=== PATIENT | male | born 1995 | race Two or more races ===

== ENCOUNTER 2020-06-28 18:17 | Emergency (ER) | payer SELFPAY ==
[~2020-06-28] VITALS: Ht 182.9 cm; Wt 79.4 kg
--- NOTE | 2020-06-28 18:24 | Emergency Room Report ---
History of Present Illness General Chief Complaint: Multiple Trauma/Fall Source: Patient Present Illness [facility] Disclaimer: Please note that this report is being documented using DRAGON technology. This can lead to erroneous entry secondary to incorrect interpretation by the dictating instrument. HPI: 24-year-old male presents for evaluation after a fall with a head injury. The patient states he was running from someone identified people when he felt lightheaded and fell. He states this happened in view of an ambulance and immediately rushed over. He remembers the events and does not believe he fully syncopized. Patient fell hitting the back of his head and sustained a laceration. EMS dressed the wound and brought in for evaluation. He states he has not had anything to eat or drink as he has had no money over the past 2 days. Denies alcohol or drug use. Currently denies any lightheadedness, headache, shortness of breath, chest pain, palpitations, nausea, vomiting. Cannot recall last tetanus shot. PMH: Denied PSH: Denied Allergies: Denied Social Hx: Denied Allergies: Coded Allergies: No Known Allergies (Unverified , 06/28/20) COVID-19 Screening Contact w/high risk pt: No Experienced COVID-19 symptoms?: No COVID-19 Testing performed NETWORK PROJECT MANAGER: No Nursing Documentation-PMH Past Medical History: No Stated History Hx Cardiac Problems: No Hx Hypertension: No Hx Pacemaker: No Hx Asthma: No Hx COPD: No Hx Diabetes: No Hx Cancer: No Hx Gastrointestinal Problems: No Hx Dialysis: No History Of Psychiatric Problem: No Hx Neurological Problems: No Hx Cerebrovascular Accident: No Hx Seizures: No Review of Systems All Other Systems: negative except mentioned in HPI Physical Exam Vital Signs Date Time Temp Pulse Resp B/P (MAP) Pulse Ox O2 Delivery O2 Flow Rate FiO2 06/28/20 18:09 98.1 120 18 160/98 (118) 98 Room Air General: Awake and alert, appears agitated HEENT: Normocephalic, stellate laceration over the occiput approximately 5 cm a cross. There are no face hematomas, lacerations or abrasions. No tenderness or soft tissue swelling over the facial bones. EOMI. PERRLA. Pupils approximately 4 mm. No septal hematoma. No oral lacerations. Dentition is intact. No malocclusion Neck: Supple, trachea midline. Arrives without cervical collar Chest Wall: No tenderness, no deformity, no crepitus CV: RRR. S1 and S2 normal. No murmur appreciated Resp: Normal work of breathing. No cough, wheezing or crackles appreciated Abd: Soft, nontender, nondistended Skin: Intact. No abrasions, laceration or rash over the exposed skin MSK: Normal tone and bulk. No obvious deformity. Moving all extremities. Ambulating without difficulty. Neuro: Awake and alert. Mentating appropriately. Mildly agitated but redirectable. GCS 15. Moving all extremities. Spine: There is no tenderness, step-off or deformity in the cervical, thoracic or lumbosacral spine. Procedures Critical Care Time Critical Care Time Total critical care time: Approximately 45 minutes Due to a high probability of clinically significant, life threatening deteriorat ion, the patient required the highest level of preparedness to intervene emergently and I personally spent this critical care time directly and personally managing the patient. This critical care time included obtaining a history, examining the patient, pulse oximetry, ordering and reviewing studies, ordering treatments, evaluating response to treatment and updating management plan as needed, frequent reassessment and discussion with other providers as well as arranging for ultimate disposition. This critical to care time was performed to assess and manage the high probability of life-threatening deterioration that could result in multiorgan failure. This critical care time is separate from the separately billable procedures and treating other patients. Medical Decision Making Diagnostic Impression: Primary Impression: Acute intracranial hemorrhage Additional Impressions: Head trauma Scalp laceration Syncope Hypokalemia Amphetamine abuse ER Course 24-year-old male had a fall from standing after near syncopal episode. Diffe rential includes was not limited to dehydration, electrolyte abnormality, malnutrition, heat exhaustion, acute cardiac event, tox, intracranial injury, intercranial mass. CT and labs ordered. Tetanus will be updated. Started on IV fluids. Patient is neurologically intact, GCS 15, no focal deficits awake and alert and conversant. 1850: Alerted by radiology that the patient has an acute cranial hemorrhage along the posterior fossa with probable subtle subarachnoid hemorrhages in the supratentorial regions. He remains awake alert conversive neurologically intact with GCS of 15. Latest blood pressure 135/76. Head of the bed elevated. Patient loaded with Keppra. Labs are pending. Patient likely require MRI and therefore we will not place issa in the scalp but will put a sterile bandage over. Will arrange transfer to [facility]. Dr. Mcdonald is the accepting physician in the neuro ICU. Patient is stable for transfer. 2000: Labs show mild hypokalemia and positive for amphetamines, marijuana, benzodia zepines. Other labs have returned within normal limits. Patient remained stable for transfer. Arrange for rapid transfer to [facility]. Labs Test 06/28/20 18:49 White Blood Count 13.6 K/UL (4.8-10.8) Red Blood Count 5.36 M/UL (4.70-6.10) Hemoglobin 15.7 G/DL (14.2-18.0) Hematocrit 46.5 % (42.0-52.0) Mean Corpuscular Volume 87 FL (80-99) Mean Corpuscular Hemoglobin 29.3 PG (27.0-31.0) Mean Corpuscular Hemoglobin Concent 33.7 G/DL (32.0-36.0) Red Cell Distribution Width 12.2 % (11.6-14.8) Platelet Count 315 K/UL (150-450) Mean Platelet Volume 8.4 FL (6.5-10.1) Neutrophils (%) (Auto) 80.0 % (45.0-75.0) Lymphocytes (%) (Auto) 10.9 % (20.0-45.0) Monocytes (%) (Auto) 7.9 % (1.0-10.0) Eosinophils (%) (Auto) 0.3 % (0.0-3.0) Basophils (%) (Auto) 0.9 % (0.0-2.0) Prothrombin Time 12.5 SEC (9.30-11.50) Prothromb Time International Ratio 1.1 (0.9-1.1) Activated Partial Thromboplast Time 26 SEC (23-33) Sodium Level 137 MMOL/L (136-145) Potassium Level 3.0 MMOL/L (3.5-5.1) Chloride Level 96 MMOL/L (98-107) Carbon Dioxide Level 25 MMOL/L (21-32) Anion Gap 16 mmol/L (5-15) Blood Urea Nitrogen 22 mg/dL (7-18) Creatinine 1.3 MG/DL (0.55-1.30) Estimat Glomerular Filtration Rate > 60 mL/min (>60) Glucose Level 127 MG/DL (74-106) Calcium Level 9.3 MG/DL (8.5-10.1) Troponin I 0.000 ng/mL (0.000-0.056) Urine Opiates Screen Negative (NEGATIVE) Urine Barbiturates Screen Negative (NEGATIVE) Phencyclidine (PCP) Screen Negative (NEGATIVE) Urine Amphetamines Screen Positive (NEGATIVE) Urine Benzodiazepines Screen Positive (NEGATIVE) Urine Cocaine Screen Negative (NEGATIVE) Urine Marijuana (THC) Screen Positive (NEGATIVE) Serum Alcohol < 3 mg/dL EKG Diagnostic Results EKG Time: 18:46 Rate: tachycardiac Rhythm: NSR ST Segments: no acute changes Other Impression Sinus tachycardia, normal axis, prolonged QTC at 560 ms, TN interval within normal limits as is QRS duration. No acute ST segment changes. ASA given to the pt in ED: No Rhythm Strip Diag. Results Rhythm Strip Time: 18:46 EP Interpretation: yes Rhythm: no PVC's, no ectopy CT/MRI/US Diagnostic Results CT/MRI/US Diagnostic Results : Impression Final Report EXAM: CT Head Without Intravenous Contrast CLINICAL HISTORY: INJ TECHNIQUE: Axial computed tomography images of the head/brain without intravenous contrast. CTDI is 53.4 mGy and DLP is 1004.7 mGy-cm. One or more of the following dose reduction techniques were used: automated exposure control, adjustment of the mA and/or kV according to patient size, use of iterative reconstruction technique. COMPARISON: No previous study. FINDINGS: Brain: There is an area of acute hemorrhage measuring 2.1 x 0.5 cm along the falx posteriorly best seen on series 6 image 20. Scattered subtle areas of subarachnoid hemorrhage are noted such as are left temporoparietal region best seen on series 6 image 22. Probable very minimal hemorrhage along the tentorium best seen on coronal image 25. No significant white matter disease. Ventricles: The ventricular system is age appropriate. Bones/joints: Calvarium is unremarkable. No acute fracture. Soft tissues: Scalp injury at the vertex. Sinuses: 0.8 cm polyp versus mucous retention cyst left sphenoid sinus. Mild to moderate chronic ethmoid sinusitis. Mastoid air cells: Mastoid air cells are well pneumatized. IMPRESSION: 1. Acute intracranial hemorrhage most notably along the posterior fossa best seen on series 6 image 20. 2. Scalp injury at the vertex. 3. No significant midline shift or mass-effect to 4. Subtle areas of subarachnoid hemorrhage are noted, most likely on the basis of bruising of the brain parenchyma. 5. Probable subtle minimal areas of subarachnoid hemorrhage in the supratentorial regions. Radiologist: Richard Redmond MD Electronically Signed: 06/28/20 18:45 Study ready at 18:41 and initial results transmitted at 18:45 Communications: Clear Time Type Notes Call Doctor Intracranial Hemorrhage Last Vital Signs Date Time Temp Pulse Resp B/P (MAP) Pulse Ox O2 Delivery O2 Flow Rate FiO2 06/28/20 18:09 98.1 120 18 160/98 (118) 98 Room Air Disposition: SHORT-TERM HOSP Condition: Serious Govind Medley MD Jun 28, 2020 18:24
[2020-06-28] MEDS ORDERED: Tetanus/Diptheria/Pertussis IM ONE (18:30)
[2020-06-28 18:32] VITALS: BP 160/98
--- NOTE | 2020-06-28 18:45 | Diagnostic Imaging Report ---
EXAM: CT Head Without Intravenous Contrast CLINICAL HISTORY: INJ TECHNIQUE: Axial computed tomography images of the head/brain without intravenous contrast. CTDI is 53.4 mGy and DLP is 1004.7 mGy-cm. One or more of the following dose reduction techniques were used: automated exposure control, adjustment of the mA and/or kV according to patient size, use of iterative reconstruction technique. COMPARISON: No previous study. FINDINGS: Brain: There is an area of acute hemorrhage measuring 2.1 x 0.5 cm along the falx posteriorly best seen on series 6 image 20. Scattered subtle areas of subarachnoid hemorrhage are noted such as are left temporoparietal region best seen on series 6 image 22. Probable very minimal hemorrhage along the tentorium best seen on coronal image 25. No significant white matter disease. Ventricles: The ventricular system is age appropriate. Bones/joints: Calvarium is unremarkable. No acute fracture. Soft tissues: Scalp injury at the vertex. Sinuses: 0.8 cm polyp versus mucous retention cyst left sphenoid sinus. Mild to moderate chronic ethmoid sinusitis. Mastoid air cells: Mastoid air cells are well pneumatized. IMPRESSION: 1. Acute intracranial hemorrhage most notably along the posterior fossa best seen on series 6 image 20. 2. Scalp injury at the vertex. 3. No significant midline shift or mass-effect to 4. Subtle areas of subarachnoid hemorrhage are noted, most likely on the basis of bruising of the brain parenchyma. 5. Probable subtle minimal areas of subarachnoid hemorrhage in the supratentorial regions. <MYCVCSECTION> Communications: 06/28/20 18:54 Call Doctor Regarding Intracranial Hemorrhage, called Dr Willoughby on 06/28 18:53 (-07:00)
[2020-06-28 19:00] VITALS: BP 135/76
[2020-06-28 19:09] LABS: BASOPHILS % (AUTO) 0.9 % (0.0-2.0); EOSINOPHILS % (AUTO) 0.3 % (0.0-3.0); HEMATOCRIT 46.5 % (42.0-52.0); HEMOGLOBIN 15.7 G/DL (14.2-18.0); LYMPHOCYTES % (AUTO) 10.9 % (20.0-45.0); MEAN CORPUSCULAR VOLUME 87 FL (80-99); MONOCYTES % (AUTO) 7.9 % (1.0-10.0); PLATELET COUNT 315 K/UL (150-450); RED BLOOD COUNT 5.36 M/UL (4.70-6.10); RED CELL DISTRIBUTION WIDTH 12.2 % (11.6-14.8); WHITE BLOOD COUNT 13.6 K/UL (4.8-10.8)
[2020-06-28] MEDS ORDERED: levETIRAcetam 1,000mg/NS100ml 100 ML IVPB ONE (19:15)
[2020-06-28 19:21] LABS: ANION GAP 16 mmol/L (5-15); BLOOD UREA NITROGEN 22 mg/dL (7-18); CALCIUM 9.3 MG/DL (8.5-10.1); CARBON DIOXIDE 25 MMOL/L (21-32); CHLORIDE 96 MMOL/L (98-107); CREATININE 1.3 MG/DL (0.55-1.30); SODIUM 137 MMOL/L (136-145)
[2020-06-28 19:37] LABS: INR 1.1 (0.9-1.1)
[2020-06-28 20:05] VITALS: BP 124/66
[2020-06-28 21:35] VITALS: BP 123/65
== END 2020-06-28 21:35 | disposition short-term general hospital (02) ==
LOC: EDBD 18:17 → EMR 19:05
DX: I62.9 Nontraumatic intracranial hemorrhage, unspecified (principal); S01.01XA Laceration without foreign body of scalp, initial encounter; R55 Syncope and collapse; E87.6 Hypokalemia; F15.10 Other stimulant abuse, uncomplicated; W19.XXXA Unspecified fall, initial encounter; Y93.02 Activity, running; Y92.9 Unspecified place or not applicable; R00.0 Tachycardia, unspecified; J32.2 Chronic ethmoidal sinusitis; Z23 Encounter for immunization
CPT/HCPCS: 36415; 70450; 80048; 80307; 84484; 85025; 85610; 85730; 90471; 90715; 93005; 96361; 96374; 99291; G0480; J1953; J7030; U0002